=== PATIENT | female | born 1950 | race Caucasian/White ===

== ENCOUNTER 2016-12-21 14:48 | Inpatient (IN) | payer OTHER ==
[~2016-12-21] VITALS: Ht 165.1 cm; Wt 64.4 kg
--- NOTE | 2016-12-21 14:55 | NUR ---
BBDENNISE FROM [facility]: R HIP INJURY S/P UNWITNESSED FALL TODAY. NAD NOTED, VSS, SKIN WARM AND DRY, RESP EVEN AND UNLABORED. AT BS
[2016-12-21 15:23] LABS: BASOPHILS % (AUTO) 0.2 % (0.0-2.0); EOSINOPHILS % (AUTO) 0.4 % (0.0-6.0); HEMATOCRIT 50 % (33-45); HEMOGLOBIN 16.5 g/dL (11.5-14.8); LYMPHOCYTES # (AUTO) 1.8 /CMM (0.8-4.8); LYMPHOCYTES % (AUTO) 15.7 % (20.0-44.0); MEAN CORPUSCULAR HEMOGLOBIN 32 PG (26.0-33.0); MEAN CORPUSCULAR HGB CONC 33 g/dl (31.0-36.0); MEAN CORPUSCULAR VOLUME 97 fL (82-100); MONOCYTES # (AUTO) 0.8 /CMM (0.1-1.30); NEUTROPHILS # (AUTO) 8.9 /CMM (1.8-8.9); NEUTROPHILS % (AUTO) 76.7 % (43.0-81.0); PLATELET COUNT (AUTO) 346 /CMM (150-450); RDW COEFFICIENT OF VARIATION 13.3 (11.5-15.0); RED BLOOD CELL COUNT(AUTO) 5.15 MIL/uL (4.0-5.2); WHITE BLOOD COUNT (AUTO) 11.6 K/uL (4.3-11.0)
--- NOTE | 2016-12-21 15:27 | NUR ---
XRAY AT BS
[2016-12-21] MEDS ORDERED: IV NS 0.9% 500 ML BAG IV ONE ×2 (15:30)
--- NOTE | 2016-12-21 15:34 | NUR ---
PT TO CTSCAN
[2016-12-21 15:39] LABS: CALCIUM, SERUM 9.8 mg/dL (8.5-10.1); POTASSIUM 4.4 mmol/L (3.5-5.1)
[2016-12-21 15:44] LABS: INR 0.97 (0.87-1.13); PROTHROMBIN TIME 10.1 SECS (9.5-12.7)
[2016-12-21 15:47] LABS: TROPONIN I 0.277 ng/mL (0.00-0.056)
[2016-12-21] MEDS ORDERED: DIGO125T GT (15:54)
[2016-12-21] MEDS ORDERED: MAGN400O6 GT (15:54)
[2016-12-21] MEDS ORDERED: DEXT1CAP3 GT (15:54)
[2016-12-21] MEDS ORDERED: SENN8.6T6 GT (15:54)
[2016-12-21] MEDS ORDERED: LORA10TA7 GT (15:54)
[2016-12-21] MEDS ORDERED: ACET650S26 GT (15:54)
[2016-12-21] MEDS ORDERED: IPRA3AMP IH (15:54)
[2016-12-21] MEDS ORDERED: NUTR250L48 GT (15:54)
[2016-12-21] MEDS ORDERED: SERT25TA GT (15:54)
[2016-12-21] MEDS ORDERED: METO25TA20 GT (15:54)
[2016-12-21] MEDS ORDERED: BACL10TA GT (15:54)
[2016-12-21] MEDS ORDERED: CLOP75TA2 GT (15:54)
[2016-12-21] MEDS ORDERED: POLY17PO4 GT (15:54)
[2016-12-21] MEDS ORDERED: METO5SOL GT (15:54)
[2016-12-21] MEDS ORDERED: PANT40SU2 GT (15:54)
--- NOTE | 2016-12-21 16:10 | NUR ---
URINE SENT TO LAB
[2016-12-21] MEDS ORDERED: DILTIAZEM HCL 50 MG IV ONE (16:25)
[2016-12-21] MEDS ORDERED: DILTIAZEM HCL 25 MG IV IV ONE (16:30)
[2016-12-21 16:38] LABS: APPEARANCE,URINE CLOUDY (CLEAR); BILIRUBIN,URINE NEGATIVE (NEGATIVE); BLOOD, URINE 2+ Ery/uL (NEGATIVE); COLOR,URINE YELLOW (YELLOW); KETONES,URINE NEGATIVE (NEGATIVE); LEUKOCYTE ESTERASE ,URINE 3+ (NEGATIVE); NITRITE, URINE NEGATIVE (NEGATIVE); PROTEIN,URINE 3+ mg/dl (NEGATIVE); UGLUCOSE NEGATIVE (NEGATIVE); UROBILINOGEN,URINE 0.2 EU/dL (0.2)
--- NOTE | 2016-12-21 16:48 | NUR ---
PATIENT ASSIGNED TO TELE 119-2
[2016-12-21 16:55] LABS: BACTERIA,URINE 2+ /HPF (None Seen); SQUAMOUS EPITHELIAL CELL,UR 0-2 /HPF (None Seen); WBC,URINE 21-50 /HPF (0-3)
[2016-12-21] MEDS ORDERED: MAGNESIUM HYDROXIDE 30 ML UDC GT PRN (17:00)
[2016-12-21] MEDS ORDERED: ASPIRIN 325 MG TABLET PO ONE (17:00)
[2016-12-21] MEDS ORDERED: ACETAMINOPHEN 650 MG/20.3 ML UDC GT PRN (17:00)
[2016-12-21] MEDS ORDERED: IPRATROPIUM NEB FS 0.5 MG/2.5 ML AMPUL.NEB NEB PRN ×2 (17:00→18:00)
[2016-12-21] MEDS ORDERED: ALBUTEROL FS 2.5 MG/3 ML VIAL.NEB NEB PRN (17:00)
[2016-12-21] MEDS: BACLOFEN (10 MG) 10 MG TABLET GT SCH (17:00)
[2016-12-21] MEDS ORDERED: ASPIRIN 325 MG TABLET ONE (17:13)
--- NOTE | 2016-12-21 17:27 | NUR ---
ASPIRIN NOT GIVEN, PT ALLERGIC TO ASA, PT ALREADY ON PLAVIX
[2016-12-21] MEDS ORDERED: Z GUARD REMEDY 2 OZ OINT TP PRN (17:30)
[2016-12-21] MEDS ORDERED: ACETAMINOPHEN 650 MG/SUPP.RECT RC PRN (17:30)
[2016-12-21] MEDS ORDERED: ONDANSETRON HCL/PF 4 MG/2 ML VIAL IVP PRN (17:30)
[2016-12-21] MEDS ORDERED: MAG HYDROX/AL HYDROX/SIMETH 30 ML UDC GT PRN (17:30)
[2016-12-21] MEDS ORDERED: MAGNESIUM HYDROXIDE 30 ML UDC PO PRN (17:30)
--- NOTE | 2016-12-21 17:30 | NUR ---
Received patient from ER via [facility].No unusual signs or symptoms observed or reported,no signs of discomfort or distress.Patient heat rate is recording A-fib,uncontrolled; placed a call to Doctor Acosta who ordered Cardizem 10 mg IVP X1.Gave medication which started to bring patient heart rhythm under control.
[2016-12-21] MEDS ORDERED: ENOXAPARIN SODIUM 40 MG/0.4 ML DISP.SYRIN SQ SCH (18:00)
[2016-12-21] MEDS ORDERED: DILTIAZEM HCL 25 MG IV ONE (19:27)
[2016-12-21] MEDS ORDERED: DILTIAZEM HCL 50 MG IV IV ONE (19:30)
[2016-12-21 20:00] VITALS: BP 156/92
[2016-12-21] MEDS: ZOLPIDEM TARTRATE 5 MG TABLET PO PRN (20:56)
[2016-12-21] MEDS: SENNOSIDES 8.6 MG TABLET GT SCH (21:16)
[2016-12-21] MEDS: METOPROLOL TARTRATE 25 MG TABLET GT SCH (21:17)
[2016-12-21] MEDS: PANTOPRAZOLE 40 MG/PACK PACK GT SCH (21:28)
[2016-12-21] MEDS: CEFTRIAXONE 1 G in IV D5W 50 ML IV SCH (21:34)
--- NOTE | 2016-12-21 23:00 | NUR ---
Monitoring patient and medicating to get heart rate under control,no problems
[2016-12-22] VITALS: BP 167/88
[2016-12-22] MEDS: HYDROCODONE/APAP 5/325MG 1 EACH TABLET GT PRN ×2 (00:06→13:00)
--- NOTE | 2016-12-22 03:00 | NUR ---
Medicated patient earlier for pain and sleep since she was occasionally yelling.Yelling stopped after geting pain medication,no problems.
[2016-12-22 04:00] VITALS: BP 143/78
[2016-12-22 06:50] LABS: BASOPHILS % (AUTO) 0.2 % (0.0-2.0); EOSINOPHILS % (AUTO) 0.2 % (0.0-6.0); HEMATOCRIT 48 % (33-45); LYMPHOCYTES # (AUTO) 2.1 /CMM (0.8-4.8); LYMPHOCYTES % (AUTO) 19.7 % (20.0-44.0); MEAN CORPUSCULAR HEMOGLOBIN 33 PG (26.0-33.0); MEAN CORPUSCULAR HGB CONC 34 g/dl (31.0-36.0); MEAN CORPUSCULAR VOLUME 97 fL (82-100); MONOCYTES # (AUTO) 0.8 /CMM (0.1-1.30); MONOCYTES % (AUTO) 7.3 % (2.0-12.0); NEUTROPHILS # (AUTO) 7.8 /CMM (1.8-8.9); NEUTROPHILS % (AUTO) 72.6 % (43.0-81.0); PLATELET COUNT (AUTO) 329 /CMM (150-450); RDW COEFFICIENT OF VARIATION 12.6 (11.5-15.0); RED BLOOD CELL COUNT(AUTO) 4.91 MIL/uL (4.0-5.2); WHITE BLOOD COUNT (AUTO) 10.8 K/uL (4.3-11.0)
--- NOTE | 2016-12-22 07:00 | NUR ---
Resting quietly,no problems
[2016-12-22 07:15] LABS: CALCIUM, SERUM 8.8 mg/dL (8.5-10.1); CREATININE 0.8 mg/dL (0.6-1.3); MAGNESIUM 1.9 mg/dL (1.8-2.4); PHOSPHORUS 3.3 mg/dL (2.5-4.9); POTASSIUM 3.9 mmol/L (3.5-5.1)
[2016-12-22 07:17] LABS: THYROID STIMULATING HORMONE 1.06 uIU/mL (0.358-3.74)
[2016-12-22 08:00] VITALS: BP 130/60
--- NOTE | 2016-12-22 08:00 | NUR ---
ELECTRONIC DEVICE REPAIRER NOTE PATIENT IN BED WITH CLOSED EYES BUT RESPONSE WHEN CALLING HER NAME ON HER [place] LANGUAGE ,ABLE TO MOVE LT ARM , ON TELE MONITOR AFIB 81 ,WITH GUILLERMO CATH WITH YELLOW CLEAR URINE , BED IN LOWEST AND LOCKED POSITION , CALL LIGHT WITHIN REACH , ON G TUBE FEEDING ORDERED , KEEP HOB ELEVATED AT ALL TIME NO RESIDUAL NOTED , ON IVF ORDERED ,WILL CONT TO MONITOR CLOSELY
[2016-12-22] MEDS ORDERED: CLOPIDOGREL BISULFATE 75 MG TABLET GT SCH (09:00)
[2016-12-22] MEDS ORDERED: DIGOXIN 0.125 MG TABLET GT SCH (09:00)
[2016-12-22] MEDS: SERTRALINE HCL 25 MG TABLET GT SCH (09:03)
[2016-12-22] MEDS: LORATADINE 10 MG TABLET GT SCH (09:03)
[2016-12-22] MEDS: POLYETHYLENE GLYCOL 3350 17 GM POWD.PACK GT SCH (09:03)
[2016-12-22] MEDS: BACLOFEN (10 MG) 10 MG TABLET GT SCH ×3 (09:04→16:53)
[2016-12-22] MEDS: METOPROLOL TARTRATE 25 MG TABLET GT SCH ×2 (09:04→21:44)
[2016-12-22] MEDS ORDERED: APIXABAN 5 MG TABLET PO SCH (09:30)
--- NOTE | 2016-12-22 09:52 | NUR ---
LINE INSTALLER TROLLEY NOTE DR MCMILLAN LEAD SUPPLY WORKER NOTIFIED THAT LAST NIGHT AFIB HR 145 AND CARDIZEM WAS GIVEN AND NOW ON TELE MONITOR AFIB 89 . ALSO AWARE THAT TROP 0.260 AND WAS BEFORE 0.279 PER LANA RN INTERVENTIONIST AT BEDSIDE OK TO KEEP FULL CODE TILL DAUGHTER SEE PATENT WILL F\U
--- NOTE | 2016-12-22 11:30 | NUR ---
FERTILIZER LOADER NOTE FAMILY AT BEDSIDE ,STATED THAT REFUSE GO BACK TO [facility], WILL ENDORSE TO AIRPLANE DISPATCHER TOMORROW
[2016-12-22 12:00] VITALS: BP 125/57
[2016-12-22] MEDS: DIGOXIN 0.125 MG TABLET GT SCH (12:35)
--- NOTE | 2016-12-22 13:23 | NUR ---
PICKING BELT OPERATOR NOTE WITH RESTLESS AND FACIAL GRIMACING ,NORCO PO GIVEN FOR PAIN ,WILL MONITOR CLOSELY
[2016-12-22 16:00] VITALS: BP 137/62
[2016-12-22] MEDS: RIVAROXABAN 10 MG TABLET PO SCH (16:52)
[2016-12-22] MEDS: PANTOPRAZOLE 40 MG/PACK PACK GT SCH (17:02)
--- NOTE | 2016-12-22 18:06 | NUR ---
BIOMEDICAL REPAIR TECHNICIAN NOTE ALL NEEDS ATTENDED, NOT IN ACUTE DISTRESS , ON IVF ORDERED ON G TUBE FEEDING ORDERED, KEEP HOB ELEVATED AT ALL TIME , BED IN LOWEST AND LOCKED POSITION , WILL CONT TO MONITOR CLOSELY
[2016-12-22] MEDS: IV NS 0.9% 1,000 ML IV PRN (18:23)
--- NOTE | 2016-12-22 19:30 | NUR ---
Received patient in the bed.No unusual signs or symptoms observed or reported except that patient is looking as though she was feeling some kind of discomfort.The plan is to give her pain medication .Telemetry attached,recording control A-fib at 85 bpm.NS is attached and infusing via a heplock at the Left Antecubital at 75 bpm,tolerating well.Nurse informed me that the heplock was giving problems and probably need to be changed.Found the pump beeping on assessment.FiberSource is attached and infusing via a GT at 75 cc/hr,no residual,tolerating well.On 02 2L N/C,no problems..
[2016-12-22 20:00] VITALS: BP 129/54
[2016-12-22] MEDS: CEFTRIAXONE 1 G in IV D5W 50 ML IV SCH (20:42)
[2016-12-22] MEDS: SENNOSIDES 8.6 MG TABLET GT SCH (21:43)
--- NOTE | 2016-12-22 21:55 | NUR ---
Medicated patient for discomfort with [place] 5mg,tolerated well
--- NOTE | 2016-12-22 22:50 | NUR ---
Inserted a 24 ambika heplock on the left arm and continue the IVF.Removed the one being replaced,no problems.
[2016-12-23] VITALS: BP 137/57
[2016-12-23] MEDS: HYDROCODONE/APAP 5/325MG 1 EACH TABLET GT PRN ×4 (03:52→20:24)
--- NOTE | 2016-12-23 03:53 | NUR ---
Patient has began to become restless and agitated again.Medicated with [place] 1 tab for pain,no problems.
[2016-12-23 04:00] VITALS: BP 136/68
--- NOTE | 2016-12-23 07:08 | NUR ---
COMPANY LAUNDRY WORKER NOTE RECEIVED PT ON BED, ALERT / NON VERBAL , ON 2 L O2 N/C , RESPIRATION EVEN AND UNLABORED, ON TELE MONITOR A. FIB IN 90'S ,GUILLERMO CATH WITH YELLOW CLEAR URINE , FIBERSOURCE AT 75CC/HR RUNNING VIA GT , NO RESIDUAL NOTED, BED LOCKED AND IN LOWEST POSITION , CALL LIGHT WITHIN REACH , KEEP HOB ELEVATED AT ALL TIME, NS AT 75CC/HR RUNNING VIA L ARM IV SITE , SR UP x3, CALL LIGHT WITHIN EASY REACH, ,WILL CONTINUE TO MONITOR PT CLOSELY .
[2016-12-23 07:13] LABS: EOSINOPHILS # (AUTO) 0.2 /CMM (0.0-0.7); EOSINOPHILS % (AUTO) 2.2 % (0.0-6.0); HEMATOCRIT 43 % (33-45); HEMOGLOBIN 14.4 g/dL (11.5-14.8); LYMPHOCYTES # (AUTO) 0.9 /CMM (0.8-4.8); LYMPHOCYTES % (AUTO) 8.7 % (20.0-44.0); MEAN CORPUSCULAR HEMOGLOBIN 33 PG (26.0-33.0); MEAN CORPUSCULAR HGB CONC 34 g/dl (31.0-36.0); MEAN CORPUSCULAR VOLUME 97 fL (82-100); MONOCYTES # (AUTO) 0.7 /CMM (0.1-1.30); MONOCYTES % (AUTO) 6.9 % (2.0-12.0); NEUTROPHILS # (AUTO) 8.2 /CMM (1.8-8.9); NEUTROPHILS % (AUTO) 82.2 % (43.0-81.0); PLATELET COUNT (AUTO) 264 /CMM (150-450); RED BLOOD CELL COUNT(AUTO) 4.38 MIL/uL (4.0-5.2)
[2016-12-23 07:28] LABS: CALCIUM, SERUM 8.4 mg/dL (8.5-10.1); CREATININE 0.8 mg/dL (0.6-1.3); POTASSIUM 3.8 mmol/L (3.5-5.1)
[2016-12-23 08:00] VITALS: BP 138/63
[2016-12-23] MEDS: POLYETHYLENE GLYCOL 3350 17 GM POWD.PACK GT SCH (09:28)
[2016-12-23] MEDS: LORATADINE 10 MG TABLET GT SCH (09:29)
[2016-12-23] MEDS: BACLOFEN (10 MG) 10 MG TABLET GT SCH ×3 (09:29→17:15)
[2016-12-23] MEDS: METOPROLOL TARTRATE 25 MG TABLET GT SCH ×2 (09:30→20:24)
[2016-12-23] MEDS: SERTRALINE HCL 25 MG TABLET GT SCH (09:30)
[2016-12-23] MEDS: IV NS 0.9% 1,000 ML IV PRN (09:51)
[2016-12-23 12:00] VITALS: BP 146/83
--- NOTE | 2016-12-23 12:00 | NUR ---
RN NOTES SUPPORTIVE FAMILY AT THE BEDSIDE, PT STABLE , CONTINUE TO MONITOR .
[2016-12-23] MEDS: DIGOXIN 0.125 MG TABLET GT SCH (13:01)
[2016-12-23 16:00] VITALS: BP 124/75
[2016-12-23] MEDS: PANTOPRAZOLE 40 MG/PACK PACK GT SCH (17:15)
[2016-12-23] MEDS: RIVAROXABAN 10 MG TABLET PO SCH (17:18)
--- NOTE | 2016-12-23 17:47 | NUR ---
RN NOTES RASHES NOTED ALL OVER THE BACK AND BUTTOCKS AREA , KEPT SKIN DRY AND CLEAN , LANA [place] GLIDING PILOT INSTRUCTOR NOTIFIED . CONTINUE TO MONITOR PER GLIDING PILOT INSTRUCTOR ORDER .
--- NOTE | 2016-12-23 18:00 | NUR ---
RN NOTES PT STABLE , SR UP x3, CALL LIGHT WITHIN EASY REACH . NO TF RESIDUAL NOTED, WILL ENDORSE TO [facility] SHIFT NURSE FOR NAT.
[2016-12-23 20:00] VITALS: BP 182/65
[2016-12-23] MEDS: CEFTRIAXONE 1 G in IV D5W 50 ML IV SCH (20:23)
[2016-12-23] MEDS: ZOLPIDEM TARTRATE 5 MG TABLET PO PRN (20:24)
[2016-12-23] MEDS: FIBERSOURCE HN 1,000 ML BOTTLE GT PRN (20:24)
[2016-12-23] MEDS: SENNOSIDES 8.6 MG TABLET GT SCH (22:05)
[2016-12-24] MEDS: HYDROCODONE/APAP 5/325MG 1 EACH TABLET GT PRN ×5 (01:03→20:04)
[2016-12-24] MEDS: IV NS 0.9% 1,000 ML IV PRN ×2 (03:38→15:40)
[2016-12-24 04:00] VITALS: BP 150/72
--- NOTE | 2016-12-24 07:00 | NUR ---
BIOLOGY INTERN NOTE RECEIVED PT ON BED, ALERT / NON VERBAL , ON 2 L O2 N/C , RESPIRATION EVEN AND UNLABORED, NO SOB NOTED, ,GUILLERMO CATH WITH YELLOW CLEAR URINE , FIBERSOURCE AT 65CC/HR RUNNING VIA GT , NO RESIDUAL NOTED, BED LOCKED AND IN LOWEST POSITION , CALL LIGHT WITHIN EASY REACH , NS AT 75CC/HR RUNNING VIA L ARM IV SITE , SR UP x3, CALL LIGHT WITHIN EASY REACH, ,WILL CONTINUE TO MONITOR PT CLOSELY .
[2016-12-24 08:00] VITALS: BP_SYST 157; BP_SYST 163; BP_DIAS 82; BP_DIAS 90
[2016-12-24] MEDS: METOPROLOL TARTRATE 25 MG TABLET GT SCH ×2 (08:50→21:12)
[2016-12-24] MEDS: SERTRALINE HCL 25 MG TABLET GT SCH (08:51)
[2016-12-24] MEDS: BACLOFEN (10 MG) 10 MG TABLET GT SCH ×3 (08:51→17:14)
[2016-12-24] MEDS: LORATADINE 10 MG TABLET GT SCH (08:51)
[2016-12-24] MEDS: POLYETHYLENE GLYCOL 3350 17 GM POWD.PACK GT SCH (08:52)
[2016-12-24] MEDS: DIGOXIN 0.125 MG TABLET GT SCH (13:20)
[2016-12-24] MEDS: FIBERSOURCE HN 1,000 ML BOTTLE GT PRN (15:40)
[2016-12-24 16:00] VITALS: BP 142/73
--- NOTE | 2016-12-24 16:00 | NUR ---
RN NOTES KEPT THE PT'S SKIN CLEAN AND DRY, LANA [place] COMIC BOOK ARTIST NOTIFIED REGARDING THE RASHES TO THE PT'S BACK , NO NEW ORDER GIVEN , CONTINUE TO MONITOR .
[2016-12-24] MEDS: PANTOPRAZOLE 40 MG/PACK PACK GT SCH (17:13)
[2016-12-24] MEDS: RIVAROXABAN 10 MG TABLET PO SCH (17:14)
--- NOTE | 2016-12-24 18:53 | NUR ---
RN NOTES PT STABLE , NO SOB NOTED, NS AT 75CC/HR RUNNING VIA L WRIST IV SITE , GUILLERMO DRAINING TO GRAVITY , TOLERATING TF WELL, NO RESIDUAL NOTED, SR UP x3, CALL LIGHT WITHIN EASY REACH, WILL ENDORSE TO ICE GUARD SKATING RINK NURSE FOR NAT .
--- NOTE | 2016-12-24 19:30 | NUR ---
ENVIRONMENTAL HEALTH INSPECTOR INITIAL NOTE RECEIVED PATIENT ON BED, ALERT X1 TO SELF, NON VERBAL, UNABLE TO ESTABLISH MEANINGFUL COMMUNICATION. PATIENT ON 2 L O2 N/C , RESPIRATION EVEN AND UNLABORED. GUILLERMO CATH WITH YELLOW CLEAR URINE , FIBERSOURCE AT 65CC/HR RUNNING VIA GT , NO RESIDUAL NOTED, BED LOCKED AND IN LOWEST POSITION , CALL LIGHT WITHIN REACH , KEEP HOB ELEVATED AT ALL TIME, NS AT 75CC/HR RUNNING VIA L ARM IV SITE , SR UP x3, CALL LIGHT WITHIN EASY REACH, ,WILL CONTINUE TO MONITOR PT CLOSELY .
[2016-12-24 20:00] VITALS: BP 172/76
[2016-12-24] MEDS: CEFTRIAXONE 1 G in IV D5W 50 ML IV SCH (20:03)
[2016-12-24] MEDS: SENNOSIDES 8.6 MG TABLET GT SCH (21:12)
[2016-12-24 22:00] VITALS: BP 144/81
[2016-12-25] VITALS (7 sets, daily range): BP systolic 142–180; BP diastolic 55–76
[2016-12-25] MEDS: HYDROCODONE/APAP 5/325MG 1 EACH TABLET GT PRN ×2 (04:44→17:29)
[2016-12-25] MEDS: FIBERSOURCE HN 1,000 ML BOTTLE GT PRN (04:46)
[2016-12-25] MEDS: IV NS 0.9% 1,000 ML IV PRN ×2 (04:56→18:53)
--- NOTE | 2016-12-25 07:00 | NUR ---
RN CLOSING NOTES PATIENT RESTING COMFORTABLY IN BED, PATIENT ENDORSED TO THE AM SHIFT NURSE FOR NAT. NO ACUTE CHANGES THROUGHOUT SHIFT
[2016-12-25 07:02] LABS: EOSINOPHILS # (AUTO) 0.7 /CMM (0.0-0.7); EOSINOPHILS % (AUTO) 4.8 % (0.0-6.0); HEMATOCRIT 44 % (33-45); LYMPHOCYTES # (AUTO) 1.1 /CMM (0.8-4.8); LYMPHOCYTES % (AUTO) 7.5 % (20.0-44.0); MEAN CORPUSCULAR HEMOGLOBIN 33 PG (26.0-33.0); MEAN CORPUSCULAR HGB CONC 34 g/dl (31.0-36.0); MEAN CORPUSCULAR VOLUME 97 fL (82-100); MONOCYTES % (AUTO) 7.3 % (2.0-12.0); NEUTROPHILS # (AUTO) 11.3 /CMM (1.8-8.9); NEUTROPHILS % (AUTO) 80.4 % (43.0-81.0); PLATELET COUNT (AUTO) 294 /CMM (150-450); RED BLOOD CELL COUNT(AUTO) 4.57 MIL/uL (4.0-5.2); WHITE BLOOD COUNT (AUTO) 14.1 K/uL (4.3-11.0)
[2016-12-25 07:23] LABS: CALCIUM, SERUM 8.3 mg/dL (8.5-10.1); CREATININE 0.7 mg/dL (0.6-1.3); POTASSIUM 3.9 mmol/L (3.5-5.1)
--- NOTE | 2016-12-25 07:30 | NUR ---
MS RN OPENING RECEIVED PATIENT A/OX1 RESTING WELL AT THIS TIME. NO S/S PAIN,SOB DIFFICULTY BREATHING AT THIS TIME. GUILLERMO IN PLACE CLEAN AND TAYA CARE COMPLETED WITH GUILLERMO DRAINING WELL. TUBE FEEDING RUNNING ORDERED RESIDUAL 8ML PATIENT TOLERATING WELL. NO COMPLICATIONS NOTED. PATIENT STILL PRESENT WITH RASH AND PER LANA HOOD HE WILL CHECK PATIENT AGAIN TODAY. BED LOWERED AND LOCKED RIALS UPX3 FOR SAFETY AND WILL ROUND Q2H OR LESS PER NEEDS
[2016-12-25] MEDS: POLYETHYLENE GLYCOL 3350 17 GM POWD.PACK GT SCH (08:23)
[2016-12-25] MEDS: SERTRALINE HCL 25 MG TABLET GT SCH (08:23)
[2016-12-25] MEDS: LORATADINE 10 MG TABLET GT SCH (08:23)
[2016-12-25] MEDS: BACLOFEN (10 MG) 10 MG TABLET GT SCH ×3 (08:23→17:17)
[2016-12-25] MEDS: METOPROLOL TARTRATE 25 MG TABLET GT SCH ×2 (08:23→21:47)
--- NOTE | 2016-12-25 11:13 | NUR ---
ms rn notes LANA SHEETER MACHINE OPERATOR AT BEDSIDE. VISUALIZED THE RASH,REDNESS TO THE WHOLE UPPER BACK/FLANK. PER YANELY HE WILL ORDER MEDICATIONS. NOTIFIED LANA OF HTN IF WE WOULD POSSIBLY BE ABLE TO ORDER A PRN IN CASE OF INCREASED BP
--- NOTE | 2016-12-25 11:53 | NUR ---
MS QAMAR MADISONRYKelly 25MG IVP PRN FOR RASH Addendum: 12/25/16 at 1747 by ESTELA COONEY RN MS QAMAR SCHWARTZ VISUALIZED SKIN
[2016-12-25] MEDS: diphenhydrAMINE HCL 50 MG/ML VIAL IV PRN ×2 (12:27→18:51)
[2016-12-25] MEDS: DIGOXIN 0.125 MG TABLET GT SCH (12:27)
--- NOTE | 2016-12-25 17:22 | NUR ---
MS RN NOTES PATIENT APPEARS TO BE IN PAIN. GRIMACING, CRYING AND HOLDING SELF. WILL GIVE PRN NORCO
[2016-12-25] MEDS: RIVAROXABAN 10 MG TABLET PO SCH (17:40)
[2016-12-25] MEDS: PANTOPRAZOLE 40 MG/PACK PACK GT SCH (17:40)
--- NOTE | 2016-12-25 19:09 | NUR ---
MS RN CLOSING PATIENT STABLE, PAIN/DISCOMFORT CONTROLLED WITH PRN MEDICATIONS. ALL DUE MEDS GIVEN AND ALL NEEDS MET. IVF RUNNING ORDERED, GUILLERMO IN PLACE DRAINING TAYA CARE COMPLETED. BED BATH COMPLETED. PATIENT TURNED Q2H AND HEELS AND ELBOWS OFFLOADED. CARE ENDORSED TO RN FOR NAT.
--- NOTE | 2016-12-25 20:00 | NUR ---
MS RN NOTES RECEIVED PTS ON BED AWAKE ALERT AND RESPONSIVE , V/S STABLE AFEBRILE , ON 02 AT 2LITERS VIA NC SATING 98% NO SOB NO DISTRESS . BREATHING EVEN AND NONLABORED, PTS IS ALERT XI WITH EPISODE OF SCREAMING , WITH LEFT WRIST G#20 INTACT AND PATENT WITH IVF OF NS AT 75CC/HR INFUSING WELL , GT FEEDING INTACT AND IN PLACE NO RESIDUAL NOTED , FEEDING OF FIBERSOURCE AT 65 CC/HR FEEDING OFF AT 12MN AND ON AT 4AM, F/C INTACT AND PATENT DRAINING WITH YELLOWISH URINE OUTPUT. HOB ELEVATED FOR ASPIRATION PRECAUTION , TURNED AND REPOSITION Q 2HRS PRN , ALL NEEDS ATTENDED TOO CALL LIGHT WITHIN REACH , ALL DUE MEDS GIVEN ORDERED KEPT PTS CLEAN DRY AND COMFORTABLE.WILL CONTINUE TO MONITOR PTS.
[2016-12-25] MEDS: CEPHALEXIN MONOHYDRATE 250 MG/5 ML BOTTLE GT SCH (21:46)
[2016-12-25] MEDS: SENNOSIDES 8.6 MG TABLET GT SCH (21:47)
[2016-12-25] MEDS: ZOLPIDEM TARTRATE 5 MG TABLET PO PRN (21:47)
--- NOTE | 2016-12-26 | NUR ---
MS RN NOTES PTS IN BED ASLEEP COMFORTABLY.
[2016-12-26 04:00] VITALS: BP 169/72
[2016-12-26] MEDS: FIBERSOURCE HN 1,000 ML BOTTLE GT PRN (04:38)
[2016-12-26] MEDS: HYDROCODONE/APAP 5/325MG 1 EACH TABLET GT PRN ×2 (05:34→17:07)
[2016-12-26] MEDS: IV NS 0.9% 1,000 ML IV PRN ×2 (05:49→22:05)
[2016-12-26 07:07] LABS: EOSINOPHILS # (AUTO) 0.5 /CMM (0.0-0.7); EOSINOPHILS % (AUTO) 4.1 % (0.0-6.0); HEMATOCRIT 45 % (33-45); HEMOGLOBIN 15.6 g/dL (11.5-14.8); LYMPHOCYTES # (AUTO) 0.9 /CMM (0.8-4.8); LYMPHOCYTES % (AUTO) 6.8 % (20.0-44.0); MEAN CORPUSCULAR HEMOGLOBIN 33 PG (26.0-33.0); MEAN CORPUSCULAR HGB CONC 35 g/dl (31.0-36.0); MEAN CORPUSCULAR VOLUME 95 fL (82-100); MONOCYTES # (AUTO) 0.8 /CMM (0.1-1.30); NEUTROPHILS # (AUTO) 10.5 /CMM (1.8-8.9); NEUTROPHILS % (AUTO) 83.1 % (43.0-81.0); PLATELET COUNT (AUTO) 298 /CMM (150-450); RED BLOOD CELL COUNT(AUTO) 4.73 MIL/uL (4.0-5.2); WHITE BLOOD COUNT (AUTO) 12.7 K/uL (4.3-11.0)
[2016-12-26] MEDS ORDERED: methylPREDNISolone (4MG) 4 MG TABLET (DAY #1 ACB) PO ONE (07:30)
--- NOTE | 2016-12-26 07:36 | NUR ---
MS RN NOTES PTS ON BED AWAKE AND RESPONSIVE , NO SIGNIFICANCE CHANGE NOTED , V/S STABLE AFEBRILE , ENDORSE TO RN DAY SHIFT FOR CONTINUITY OF CARE.
[2016-12-26 08:00] VITALS: BP 150/92
--- NOTE | 2016-12-26 08:00 | NUR ---
MS RN NOTES RECEIVED PTS ON BED AWAKE ALERT AND RESPONSIVE , , ON 02 AT 2LITERS VIA NC SATING 96% NO SOB NO DISTRESS . BREATHING EVEN AND NONLABORED, WITH LEFT WRIST G#20 INTACT AND PATENT WITH IVF OF NS AT 75CC/HR INFUSING WELL , GT FEEDING INTACT AND IN PLACE NO RESIDUAL NOTED , FEEDING OF FIBERSOURCE AT 65 CC/HR KEEP HOB ELEVATED AT ALL TIME , F/C INTACT AND PATENT DRAINING WITH YELLOWISH URINE OUTPUT. HOB ELEVATED FOR ASPIRATION PRECAUTION , TURNED AND REPOSITION Q 2HRS PRN , ALL NEEDS ATTENDED TOO CALL LIGHT WITHIN REACH ,
[2016-12-26] MEDS: POLYETHYLENE GLYCOL 3350 17 GM POWD.PACK GT SCH (08:33)
[2016-12-26] MEDS: LORATADINE 10 MG TABLET GT SCH (08:34)
[2016-12-26] MEDS: METOPROLOL TARTRATE 25 MG TABLET GT SCH ×2 (08:34→22:04)
[2016-12-26] MEDS: SERTRALINE HCL 25 MG TABLET GT SCH (08:34)
[2016-12-26] MEDS: BACLOFEN (10 MG) 10 MG TABLET GT SCH ×3 (08:35→16:13)
[2016-12-26 10:00] VITALS: BP 138/79
--- NOTE | 2016-12-26 10:03 | NUR ---
MS RN NOTE SPOKE WITH DIETARY ABOUT G TUBE FEEDING STATED THAT WILL CHECK RATE AND TIME ALSO SPOKE ANDREW DE DIOS RN CULINARY WORKER NOTIFIED THAT EARLIER HR WAS 160 METOPROLOL VIA G TUBE WAS GIVEN AT 0900 AND NOW BP 138/79 HR 83, WILL CONT TO MONITOR CLOSELY
[2016-12-26] MEDS: CEPHALEXIN MONOHYDRATE 250 MG/5 ML BOTTLE GT SCH (10:24)
[2016-12-26] MEDS ORDERED: methylPREDNISolone DOSPAK(4MG) 1 PACK TAB.DS.PK PO ONE (11:00)
[2016-12-26] MEDS: diphenhydrAMINE HCL 50 MG/ML VIAL IV PRN (11:04)
--- NOTE | 2016-12-26 11:10 | NUR ---
MS RN NOTE SPOKE WITH LANA FOOTE FURNACE INSTALLER HELPER NOTIFIED THAT PATIENT STILL HAS RASHES ON BODY BENADRYL IVP GIVEN ORDERED STATED THAT WILL ORDER PREDNISONE, WILL F\U
[2016-12-26] MEDS ORDERED: methylPREDNISolone (4MG) 4 MG TABLET (DAY #1 ) PO ONE (11:30)
[2016-12-26] MEDS: NITROFURANTOIN/NITROFURAN MAC 100 MG CAPSULE PO SCH ×2 (11:38→21:00)
--- NOTE | 2016-12-26 12:23 | NUR ---
MS FOOTE NOTE SPIKE WITH ANSELMO FROM PHARMACIST NOTIFIED THAT UNABLE TO GIVE MEDS MEDROL AT 0730 ORDER WAS PLACED AT 1130 , STATED TS OK AND CONT TO GIVE MEDS SCHEDULE OK TO GIVE NEXT DOSE IN HOUR Addendum: 12/26/16 at 1227 by JESS MATIAS RN PER DIETARY OK TO START G TUBE FEEDING AT 55 ML PER HOUR Addendum: 12/26/16 at 1235 by JESS MATIAS RN PER LANA FOOTE NP OK TO PLACE MID LINE
[2016-12-26] MEDS ORDERED: methylPREDNISolone (4MG) 4 MG TABLET (DAY #1, PC LUNCH) PO ONE ×2 (12:30)
[2016-12-26] MEDS: DIGOXIN 0.125 MG TABLET GT SCH (12:57)
[2016-12-26 12:59] VITALS: BP 132/79
[2016-12-26 16:00] VITALS: BP 142/81
[2016-12-26] MEDS: FAMOTIDINE (20 MG) 20 MG TABLET GT SCH (16:14)
[2016-12-26] MEDS: RIVAROXABAN 10 MG TABLET PO SCH (16:15)
--- NOTE | 2016-12-26 17:10 | NUR ---
TRACK ANNOUNCER NOTE C\O PAIN IN BODY BY GRIMACING AND CRYING ,NORCO VIA G TUBE GIVEN ORDERED ,WILL CONT TO MONITOR CLOSELY
[2016-12-26] MEDS ORDERED: methylPREDNISolone (4MG) 4 MG TABLET (DAY #1 PC DINNER) PO ONE ×2 (17:30)
[2016-12-26] MEDS ORDERED: methylPREDNISolone (4MG) 4 MG TABLET (DAY#3,PC DINNER) PO ONE (17:30)
--- NOTE | 2016-12-26 18:54 | NUR ---
MS RN NOTE ALL NEEDS ATTENDED , CONT ON GTUBE FEEDING ORDERED AT 55 ML PER HOUR , WILL CONT TO MONITOR ACCORDANTLY
[2016-12-26 20:00] VITALS: BP 153/78
--- NOTE | 2016-12-26 20:00 | NUR ---
RN NOTES RECEIVED PATIENT RESTING COMFORTABLY IN BED WITH NO RESPIRATORY DISTRESS OR SHORTNESS OF BREATH. BREATHING EVEN AND UNLABORED. ON O2 AT 2LPM VIA NASAL CANNULA TOLERATING WELL. NO PHYSICAL MANIFESTATION OF PAIN OR DISCOMFORT. EYES OPEN WITH NO EYE CONTACT. OBTUNDED. GTUBE PATENT, NO RESIDUAL. FEEDING WELL TOLERATED. FC INTACT DRAINING CLEAR YELLOW WITH NO FOUL ODOR URINE. KEPT CLEAN AND DRY. WILL CONTINUE TO MONITOR.
[2016-12-26] MEDS ORDERED: methylPREDNISolone (4MG) 4 MG TABLET (DAY1,HS) PO ONE ×2 (22:00)
[2016-12-26] MEDS: SENNOSIDES 8.6 MG TABLET GT SCH (22:03)
[2016-12-27] VITALS: BP 139/77
[2016-12-27 04:00] VITALS: BP_SYST 153; BP_SYST 157; BP_DIAS 90
[2016-12-27] MEDS: FIBERSOURCE HN 1,000 ML BOTTLE GT PRN (06:25)
--- NOTE | 2016-12-27 07:05 | NUR ---
RN CLOSING NOTES IN BED RESTING COMFORTABLY WITH NO RESPIRATORY DISTRESS OR SHORTNESS OF BREATH. BREATHING EVEN AND UNLABORED. NO PHYSICAL MANIFESTAION OF PAIN. NEEDS ATTENDED. VITAL SIGNS WNL. WILL ENDORSE TO AM SHIFT FOR CONTINUITY OF CARE.
[2016-12-27] MEDS ORDERED: methylPREDNISolone (4MG) 4 MG TABLET (DAY#2 ACB) PO ONE ×2 (07:30)
[2016-12-27 08:00] VITALS: BP 147/75
[2016-12-27] MEDS: NITROFURANTOIN/NITROFURAN MAC 100 MG CAPSULE PO SCH ×2 (09:00→21:03)
[2016-12-27] MEDS: METOPROLOL TARTRATE 25 MG TABLET GT SCH ×2 (09:00→21:05)
[2016-12-27] MEDS: POLYETHYLENE GLYCOL 3350 17 GM POWD.PACK GT SCH (09:01)
[2016-12-27] MEDS: BACLOFEN (10 MG) 10 MG TABLET GT SCH ×3 (09:01→16:40)
[2016-12-27] MEDS: LORATADINE 10 MG TABLET GT SCH (09:01)
[2016-12-27] MEDS: SERTRALINE HCL 25 MG TABLET GT SCH (09:01)
[2016-12-27] MEDS: FAMOTIDINE (20 MG) 20 MG TABLET GT SCH ×2 (09:01→16:40)
[2016-12-27] MEDS: HYDROCODONE/APAP 5/325MG 1 EACH TABLET GT PRN ×3 (10:31→23:46)
[2016-12-27] MEDS ORDERED: methylPREDNISolone (4MG) 4 MG TABLET (DAY#2,PC LUNCH) PO ONE ×2 (12:30)
[2016-12-27] MEDS: IV NS 0.9% 1,000 ML IV PRN (12:57)
[2016-12-27] MEDS: DIGOXIN 0.125 MG TABLET GT SCH (13:04)
[2016-12-27] MEDS ORDERED: Z GUARD REMEDY 2 OZ OINT TP PRN (15:30)
[2016-12-27 16:00] VITALS: BP 156/66
[2016-12-27] MEDS: RIVAROXABAN 10 MG TABLET PO SCH (16:50)
[2016-12-27] MEDS ORDERED: methylPREDNISolone (4MG) 4 MG TABLET (DAY#2, PC DINNER) PO ONE ×2 (17:30)
--- NOTE | 2016-12-27 18:58 | NUR ---
RN CLOSING NOTE PT REMAINED STABLE, NO FEVER, SEEN BY COMMUNITY HEALTH PROGRAM REPRESENTATIVE YANELY, RASH SUBSIDED, G TUBE FEEDING TOLERATED WELL, ALL MEDS GIVEN ORDERED, NEEDS MET, KEPT CLEAN AND DRY, WILL ENDORSE TO PM NURSE FOR NAT.
[2016-12-27 20:00] VITALS: BP 139/77
--- NOTE | 2016-12-27 20:30 | NUR ---
QAMAR Paulino INITIAL NOTES RECEIVED PATIENT RESTING COMFORTABLY IN BED WITH NO RESPIRATORY DISTRESS OR SHORTNESS OF BREATH. BREATHING EVEN AND UNLABORED. ON O2 AT 2LPM VIA NASAL CANNULA TOLERATING WELL. NO FACIAL GRIMANCING NOTED OR DISCOMFORT. EYES OPEN WITH NO EYE CONTACT. OBTUNDED. GTUBE PATENT, NO RESIDUAL. FEEDING WELL TOLERATED. FC INTACT DRAINING CLEAR YELLOW WITH NO FOUL ODOR URINE. KEPT CLEAN AND DRY. WILL CONTINUE TO MONITOR.
[2016-12-27] MEDS ORDERED: methylPREDNISolone (4MG) 4 MG TABLET (DAY#2, HS) PO ONE ×2 (21:00)
[2016-12-27] MEDS: SENNOSIDES 8.6 MG TABLET GT SCH (21:03)
[2016-12-28] VITALS: BP 139/77
[2016-12-28] MEDS: diphenhydrAMINE HCL 50 MG/ML VIAL IV PRN ×3 (00:26→17:00)
[2016-12-28 04:00] VITALS: BP 132/63
[2016-12-28] MEDS: IV NS 0.9% 1,000 ML IV PRN (04:01)
[2016-12-28] MEDS: FIBERSOURCE HN 1,000 ML BOTTLE GT PRN (04:05)
--- NOTE | 2016-12-28 06:46 | NUR ---
RN MS CLOSING NOTES ENDORSED PATIENT RESTING COMFORTABLY IN BED WITH NO RESPIRATORY DISTRESS OR SHORTNESS OF BREATH. BREATHING EVEN AND UNLABORED. ON O2 AT 2LPM VIA NASAL CANNULA TOLERATING WELL. NO FACIAL GRIMANCING NOTED OR DISCOMFORT. EYES OPEN WITH NO EYE CONTACT. OBTUNDED. GTUBE PATENT, NO RESIDUAL. FEEDING WELL TOLERATED. FC INTACT DRAINING CLEAR YELLOW WITH NO FOUL ODOR URINE. KEPT CLEAN AND DRY. WILL CONTINUE TO MONITOR.
--- NOTE | 2016-12-28 07:05 | NUR ---
RN NOTES RECEIVED PATIENT ON BED, A/Ox1, RESPIRATION EVEN AND UNLABORED, ON O2 2 L N/C , NO SOB NOTED, GUILLERMO DRAINING TO GRAVITY WITH YELLOW CLEAR URINE, TF FIBERSOURCE AT 55 CC/HR RUNNING VIA GT , NO RESIDUAL NOTED AT THIS TIME , NS AT 75CC/HR RUNNING VIA LEFT WRIST IV G 22 SITE CDI. SR UP x3, CALL LIGHT WITHIN EASY REACH, BED LOCKED AND IN LOWEST POSITION , WILL CONTINUE TO MONITOR.
[2016-12-28] MEDS ORDERED: methylPREDNISolone (4MG) 4 MG TABLET (DAY#3,ACB) PO ONE ×2 (07:30)
[2016-12-28 08:00] VITALS: BP 159/57
[2016-12-28] MEDS: FAMOTIDINE (20 MG) 20 MG TABLET GT SCH ×2 (08:07→17:00)
[2016-12-28] MEDS: LORATADINE 10 MG TABLET GT SCH (08:07)
[2016-12-28] MEDS: NITROFURANTOIN/NITROFURAN MAC 100 MG CAPSULE PO SCH (08:07)
[2016-12-28] MEDS: POLYETHYLENE GLYCOL 3350 17 GM POWD.PACK GT SCH (08:07)
[2016-12-28] MEDS: BACLOFEN (10 MG) 10 MG TABLET GT SCH ×3 (08:13→16:59)
[2016-12-28] MEDS: SERTRALINE HCL 25 MG TABLET GT SCH (08:13)
[2016-12-28] MEDS: METOPROLOL TARTRATE 25 MG TABLET GT SCH (08:13)
[2016-12-28] MEDS: HYDROCODONE/APAP 5/325MG 1 EACH TABLET GT PRN ×2 (10:24→17:00)
[2016-12-28] MEDS: DIGOXIN 0.125 MG TABLET GT SCH (12:19)
[2016-12-28] MEDS ORDERED: methylPREDNISolone (4MG) 4 MG TABLET (DAY#3,PC LUNCH) PO ONE ×2 (12:30)
--- NOTE | 2016-12-28 15:45 | NUR ---
RN NOTES EAGLE Mayer/WOO PER LANA ORTEGA .
[2016-12-28 16:00] VITALS: BP 103/79
--- NOTE | 2016-12-28 16:00 | NUR ---
RN NOTES REPORT GIVEN TO SNF , PT STABLE , CONTINUE TO MONITOR .
[2016-12-28] MEDS: RIVAROXABAN 10 MG TABLET PO SCH (17:03)
[2016-12-28] MEDS ORDERED: methylPREDNISolone (4MG) 4 MG TABLET (DAY#3,PC DINNER) PO ONE (17:30)
--- NOTE | 2016-12-28 18:45 | NUR ---
RN NOTES VSS STABLE ,NO DISTRESS NOTE, MEDICATED PER MD ORDER ,AWAITING FOR EMT TO DISCHARGE TO SNF .
[2016-12-28] MEDS ORDERED: hydrALAZINE HCL IV 20 MG VIAL IV ONE (19:00)
--- NOTE | 2016-12-28 19:00 | NUR ---
RN NOTES EMT ON THE FLOOR TO TAKE PT TO SNF, PT'S BP= 185/73. LANA GAUGE AND INSTRUMENT INSPECTOR NOTIFIED, ORDER RECEIVED FOR HYDRALAZINE 10 MG IV x1.
[2016-12-28] MEDS ORDERED: hydrALAZINE HCL IV 20 MG VIAL ONE (19:12)
--- NOTE | 2016-12-28 19:15 | NUR ---
RN NOTES BP RECHECKED AND BP IS 149/86 AT THIS TIME , HYDRALAZINE 10MG HELD AND NOT GIVEN.
--- NOTE | 2016-12-28 19:20 | NUR ---
RN NOTES REPORT GIVEN TO EMT, R HAND IV SITE DISCONTINUED , PT LEFT THE FLOOR VIA AMBULANCE TO SNF IN STABLE CONDITION .
[2016-12-28] MEDS ORDERED: hydrALAZINE HCL IV 20 MG VIAL IV PRN (19:30)
[2016-12-28] MEDS ORDERED: methylPREDNISolone (4MG) 4 MG TABLET (DAY#3, HS) PO ONE ×2 (22:00)
[2016-12-29] MEDS ORDERED: methylPREDNISolone (4MG) 4 MG TABLET (DAY #4, ACB) PO ONE ×2 (07:30)
[2016-12-29] MEDS ORDERED: methylPREDNISolone (4MG) 4 MG TABLET (DAY #4, PC LUNCH) PO ONE ×2 (12:30)
[2016-12-29] MEDS ORDERED: methylPREDNISolone (4MG) 4 MG TABLET (DAY#4 HS) PO ONE ×2 (22:00)
[2016-12-30] MEDS ORDERED: methylPREDNISolone (4MG) 4 MG TABLET (DAY#5, ACB) PO ONE ×2 (07:30)
[2016-12-30] MEDS ORDERED: methylPREDNISolone (4MG) 4 MG TABLET (DAY#5,HS) PO ONE ×2 (22:00)
[2016-12-31] MEDS ORDERED: methylPREDNISolone (4MG) 4 MG TABLET (DAY#6,ACB) PO ONE ×2 (07:30)
== END 2016-12-28 19:20 | DRG 190 ==
LOC: ER 14:49 → TELE-TD 17:06 → TELE1 12-22 07:03 → MEDSG1 12-23 17:52
PROVIDERS: ADMIT Nurse Practitioner Acute Care; ATTEND Nurse Practitioner Acute Care
DX: I21.4 Non-ST elevation (NSTEMI) myocardial infarction (principal); R53.2 Functional quadriplegia; R13.10 Dysphagia, unspecified; I11.0 Hypertensive heart disease with heart failure; I69.359 Hemiplegia and hemiparesis following cerebral infarction affecting unspecified side; I48.2 Chronic atrial fibrillation; N39.0 Urinary tract infection, site not specified; F32.9 Major depressive disorder, single episode, unspecified; I50.32 Chronic diastolic (congestive) heart failure; E11.9 Type 2 diabetes mellitus without complications; B96.20 Unspecified Escherichia coli [E. coli] as the cause of diseases classified elsewhere; Z93.1 Gastrostomy status; E78.5 Hyperlipidemia, unspecified; K21.9 Gastro-esophageal reflux disease without esophagitis; D72.829 Elevated white blood cell count, unspecified; K80.20 Calculus of gallbladder without cholecystitis without obstruction; Z66 Do not resuscitate; R79.89 Other specified abnormal findings of blood chemistry; T36.1X5A Adverse effect of cephalosporins and other beta-lactam antibiotics, initial encounter; Y92.89 Other specified places as the place of occurrence of the external cause
CPT/HCPCS: 36415; 70450-TC; 71010-TC; 80048-TC; 80061-TC; 80162-TC; 81000-TC; 83735-TC; 84100-TC; 84443-TC; 84484-TC; 85025-TC; 85730-TC; 87081-TC; 87086-TC; 87186-TC; 93307-TC; A4606; J0360; J0696; J1200; J1650; J3490; J7030; J7060; J7509; Z7610